=== PATIENT | female | born 1980 | race Hispanic/Latino ===

== ENCOUNTER → 2016-06-13 | Outpatient (CLI) | payer SELFPAY ==
--- NOTE | 2016-06-13 10:08 | Diagnostic Imaging Report ---
PROCEDURE: US Gallbladder. TECHNIQUE: Multiple real-time grayscale images were obtained over the right upper quadrant in various projections. INDICATION: Right upper quadrant pain. FINDINGS: The visualized portions of the pancreas appear unremarkable. The liver is fairly homogeneous with no focal lesion. There is hepatopetal flow in the portal vein seen. The gallbladder demonstrates no gallbladder wall thickening or pericholecystic fluid. No definite stone. Small portion of the fundus of the gallbladder is obscured by overlying bowel loops. The CBD is 0.3 cm in caliber. The right kidney is 10.5 cm in length with no hydronephrosis or focal lesion. No fluid collection in the upper right abdomen seen. Sonographic Rudolph sign is reportedly negative. IMPRESSION: No definite abnormality. The portion of the fundus of the gallbladder is obscured by overlying bowel gas. Dictated by: Dictated on workstation # [id number]
== END ==
LOC: RAD 07:42
PROVIDERS: ATTEND Family Medicine
DX: R10.11 Right upper quadrant pain (principal)
CPT/HCPCS: 76705